=== PATIENT | male | born 1985 | race Two or more races ===

== ENCOUNTER 2018-12-09 21:48 | Emergency (ER) | payer OTHER ==
[~2018-12-09] VITALS: Ht 175.3 cm; Wt 83.9 kg
[2018-12-09 21:54] VITALS: BP 150/110
[2018-12-09] MEDS ORDERED: methylPREDNISolone SOD SUCC 125 MG/2 ML VL IM ONE (22:00)
[2018-12-09] MEDS ORDERED: diphenhdrAMINE HCL 25 MG CAP PO ONE (22:00)
== END 2018-12-09 23:18 | disposition left against medical advice (07) ==
LOC: ER 21:51
DX: T78.40XA Allergy, unspecified, initial encounter (principal); Z53.21 Procedure and treatment not carried out due to patient leaving prior to being seen by health care provider
CPT/HCPCS: 96372; 99281; J2930